=== PATIENT | female | born 2000 | race Two or more races ===

== ENCOUNTER 2024-09-28 04:23 | Emergency (ER) | payer OTHER, SELFPAY ==
[2024-09-28 04:23] VITALS: BMI 42.2
[2024-09-28 04:37] VITALS: BP 132/82; PULSE 90; RESP 16; TEMP 37.1; O2SAT 98
--- NOTE | 2024-09-28 04:50 | XR_ITS ---
Examination: Ribs, left, with PA chest, 5 views Technique: Chest PA, RIBS AP, RPO, LPO, AP coned lower ribs 5 views Exam date and time: September 28, 2024 0456 hours INDICATION: Left upper abdominal pain beginning 2 days ago. Left rib pain FINDINGS: Normal heart size No pneumothorax No acute rib fractures IMPRESSION: No pneumothorax pulmonary contusion or hemothorax No acute rib fractures
--- NOTE | 2024-09-28 04:51 | EDRME_ITS ---
Rapid Medical Screening Exam E Arrival date/time: 09/28/24 04:23 24F with no significant PMH presents to ED with several months of intermittent LUQ pain. Patient denies N/V. Patient tested neg for H. pylori. Patient would like CT if other diagnostics are inconclusive and pain is not improved after GI cocktail, since her PCP was going to order it anyway. Patient is leaving for [place] tomorrow. Chief Complaint: Abdominal Pain Vital signs: Vital Signs Temperature 98.7 F 09/28/24 04:37 Pulse Rate 90 09/28/24 04:37 Respiratory Rate 16 09/28/24 04:37 Blood Pressure 132/82 H 09/28/24 04:37 Pulse Oximetry (%) 98 09/28/24 04:37 Oxygen Delivery Method Room Air 09/28/24 04:37
[2024-09-28] MEDS: FAMOTIDINE 20 MG TABLET 40 MG PO (05:05)
[2024-09-28] MEDS: MG HYD/AL HYD/SIME (Maalox Reg) SUSP 30 ML UDC PO (05:05)
[2024-09-28 05:15] LABS: Collection Type, Urine Clean Catch
[2024-09-28 05:21] LABS: Bilirubin,Urine Negative (Negative); Blood,Urine Negative (Negative); Clarity,Urine Clear (Clear/Hazy); Color,Urine Lt-Yellow (Lt Yel-Yel); Culture Indicated,Urine Not Indicated; Glucose, Urine Negative (Negative); Ketones,Urine Negative (Negative); Leukocyte Esterase,Urine Positive (Negative); Nitrite,Urine Negative (Negative); PH,Urine 6.5 (5.0-7.0); Protein,Urine Negative (Neg - Trace); RBC,Urine 7 /hpf (0-3); Specific Gravity,Urine 1.021 (1.001-1.035); Squamous Epithelial Cell,Urine 3 /hpf (0-5); Urobilinogen,Urine Negative mg/dL (0.0-1.0); WBC,Urine 4 /hpf (0-5)
[2024-09-28 05:23] LABS: HCG Qualitative,Urine Negative
[2024-09-28 05:44] LABS: Basophils % (Auto) 0 % (0-2.5); Eosinophils # (Auto) 0.1 Thou/mm3 (0.0-0.5); Eosinophils % (Auto) 1 % (0-10); Hematocrit 34.2 % (36.0-46.0); Hemoglobin 12.4 g/dL (12.0-16.0); Immature Granulocytes % (Auto) 0 % (0-0); Immature Granulocytes Auto 0.01 Thou/mm3 (0.00-0.00); Lymphocytes # (Auto) 2.2 Thou/mm3 (1.0-4.8); Lymphocytes % (Auto) 40 % (10-50); Mean Corpuscular HGB Conc 36.3 g/dl (31.0-37.0); Mean Corpuscular Hemoglobin 32.4 pg (25.0-35.0); Mean Corpuscular Volume 89 fL (80-100); Monocytes # (Auto) 0.4 Thou/mm3 (0.0-0.8); Monocytes % (Auto) 7 % (0-12); Neutrophils # (Auto) 2.8 Thou/mm3 (1.8-7.7); Neutrophils % (Auto) 52 % (37-80); Nucleated Red Blood Cell % 0 /100 WBC (0); Platelet Count 271 Thou/mm3 (140-440); RDW Standard Deviation 40.2 fL (36.4-46.3); Red Blood Count 3.83 Miln/mm3 (4.00-5.20); White Blood Count 5.5 Thou/mm3 (3.6-11.0)
[2024-09-28 06:15] LABS: Alanine Aminotransferase 14 U/L (10-49); Albumin, Serum 4.1 gm/dL (3.5-5.0); Albumin/Globulin Ratio 1.8 (1.2-2.2); Alkaline Phosphatase 34 U/L (46-116); Anion Gap 7 (7-16); Aspartate Amino Transferase 15 U/L (0-34); BUN/Creatinine Ratio 9 Ratio (12-20); Bilirubin,Total 0.6 mg/dL (0.3-1.2); Blood Urea Nitrogen 7 mg/dL (9-23); Calcium 8.8 mg/dL (8.3-10.6); Calcium (Corrected) 8.8 mg/dL (8.5-10.1); Carbon Dioxide 25.7 mMol/L (20.0-31.0); Chloride 108 mMol/L (98-107); Creatinine (Component) 0.8 mg/dL (0.6-1.3); Estimated Creatinine Clearance 131.4 mL/min (>60); Globulin 2.3 gm/dL (2.3-3.5); Glucose 92 mg/dL (74-106); Lipase 35 U/L (12-53); Osmolality,Calculated 279 (275-295); Potassium 3.7 mMol/L (3.4-5.1); Sodium 141 mMol/L (136-145); Total Protein 6.4 gm/dL (5.7-8.2); eGFR > 60 See Note
[2024-09-28 06:24] LABS: Amphetamine/Methamp Scrn,U Negative (Negative); Barbiturate Screen,Urine Negative (Negative); Benzodiazepines Screen,Urine Negative (Negative); Benzoylecgonine Screen, Ur Negative (Negative); Fentanyl Screen,Urine Negative (Negative); Opiate Screen,Urine Negative (Negative); THC Screen,Urine Negative (Negative)
--- NOTE | 2024-09-28 07:05 | XR_ITS ---
Examination: CT abdomen and pelvis without contrast. Coronal 3-D reconstructions. Sagittal 2-D reconstructions. Date and time of exam:September 28, 2024 0819 hours INDICATION: Left-sided flank pain frequent urination beginning 2 days ago CTDI: vol (mGy): 16.2 DLP: (mGycm): 977 Technique: Axial images of the abdomen have been obtained, 3 mm slice thickness Intravenous contrast material has not been administered. Low dose protocols were performed. One or more of the following dose reduction techniques were used; automated exposure control, adjustment of the mA and/or KV according to patient size, use of iterative reconstruction technique. Findings: No focal liver or splenic lesions No gallstones No pancreatic or adrenal mass No renal or ureteral calculi, no hydronephrosis Normal appendix No bowel obstruction No diverticulitis Partially retroverted uterus No pelvic mass Colonic diverticulosis Contracted urinary bladder, no bladder mass or bladder calculi Moderate disc narrowing posteriorly L5-S1 IMPRESSION: No renal or ureteral calculi, no hydronephrosis Normal appendix Colonic diverticulosis, no diverticulitis No bladder mass or bladder calculi
--- NOTE | 2024-09-28 07:52 | PC.NURSE ---
called CT, per CT pt. will be next to get her CT done.
--- NOTE | 2024-09-28 09:32 | PC.NURSE ---
NO ANSWER WHEN CALLED TO BE DISCHARGED
--- NOTE | 2024-09-28 09:49 | EDNOTE_ITS ---
ED Abdominal Pain RME/HPI General Chief Complaint: Abdominal Pain Stated complaint: LUQ PAIN Time seen by provider: 09/28/24 07:06 Arrival date/time: 09/28/24 04:23 24F with no significant PMH presents to ED with several months of intermittent LUQ pain. Patient denies N/V. Patient tested neg for H. pylori. Patient would like CT if other diagnostics are inconclusive and pain is not improved after GI cocktail, since her PCP was going to order it anyway. Patient is leaving for [place] tomorrow. Limitations: no limitations RME / HPI RME / HPI narrative: 09/28/24 04:23 24F with no significant PMH presents to ED with several months of intermittent LUQ pain. Patient denies N/V. Patient tested neg for H. pylori. Patient would like CT if other diagnostics are inconclusive and pain is not improved after GI cocktail, since her PCP was going to order it anyway. Patient is leaving for [place] tomorrow. Related Data Previous Rx's ?Medication ?Instructions ?Recorded clotrimazole 1 % vaginal cream See Rx Instructions .[place] 11/09/19 (Gyne-Lotrimin 7) .COMPLEX #45 grams fluconazole 150 mg tablet 150 mg PO .once #1 tab 11/08 (Diflucan) nystatin 100,000 unit/gram topical 1 applicatio topica l TID #30 grams 11/09/19 cream sodium chloride 0.65 % nasal spray 2 spray intranasal QID PRN nasal 05/24/20 aerosol (Saline Nasal) congestion #60 mL famotidine 20 mg tablet (Pepcid) 20 mg PO BID 30 days #60 tabs 09/28/24 omeprazole 20 mg capsule,delayed 20 mg PO QDAY 14 days #14 caps 09/28/24 release Allergies Allergy/AdvReac Type Severity Reaction Status Date / Time No Known Allergies Allergy Verified 11/09/19 01:03 Review of Systems Review of Systems Systems Reviewed: All systems reviewed, normal except as documented Constitutional Constitutional: Reports system reviewed and no additional complaints, except as documented, Denies fever(s) and Denies headache(s) Eyes Eyes: Reports system reviewed and no additional complaints, except as documented and Denies blurry vision ENT Ears, Nose, Mouth, and Throat: Reports system reviewed and no additional complaints, except as documented, Denies headache(s), Denies nasal congestion and Denies nasal discharge Cardiovascular Cardiovascular: Reports system reviewed and no additional complaints, except as documented, Denies chest pain and Denies dyspnea Respiratory Respiratory: Reports system reviewed and no additional complaints, except as documented, Denies chest congestion, Denies cough and Denies dyspnea Gastrointestinal Gastrointestinal: Reports system reviewed and no additional complaints, except as documented and Reports abdominal pain Integumentary/Breasts Skin/Breast: Reports system reviewed and no additional complaints, except as documented and Denies rash Neurologic Neurologic: Reports system reviewed and no additional complaints, except as documented, Reports as per HPI and Denies headache(s) Past Medical History Past Medical History CARDIAC: Negative Congestive Heart Failure RESPIRATORY: Negative Chronic Obstructive Pulmonary Disease (COPD) GENITOURINARY: Negative Renal Disease ENDOCRINE: Negative Diabetes Mellitus Type 1 or Diabetes Mellitus Type 2 Social History SMOKING STATUS: Never smoker ED Exam General Limitations: Present no limitations General appearance: Present alert and in no apparent distress Head Head exam: Present atraumatic Eye Eye exam: Present normal appearance, PERRL and EOMI ENT ENT exam: Present normal exam, normal oropharynx and mucous membranes moist Neck Neck exam: Present normal inspection, full ROM and trachea midline Chest Chest inspection: Present normal inspection and symmetric chest wall rise Respiratory Respiratory exam: Present normal lung sounds bilaterally Cardiovascular Cardiovascular exam: Present regular rate, normal rhythm and normal heart sounds Abdominal Exam Abdominal exam: Present soft and normal bowel sounds; Absent distention, tenderness, guarding, rebound, rigidity, Jose's sign or tenderness at McBurney's Point Abdominal tenderness: Absent RUQ or RLQ Extremities Exam Extremities exam: Present normal inspection and full ROM Back Exam Back exam: Present normal inspection and full ROM Neurological Exam Neurological exam: Present alert, oriented X3 and CN II-XII intact Psychiatric Psychiatric exam: Present normal affect and normal mood Skin Skin exam: Present warm, dry, intact and normal color Course Quality Measures none Orders Category Date Time Status CT abdomen pelvis wo con Stat Exams 09/28/24 07:05 Completed XR ribs LT min 3V w CXR1V Stat Exams 09/28/24 04:50 Completed CBC Stat Lab 09/28/24 05:25 Completed CMP [Comprehensive Metabolic Panel] Stat Lab 09/28/24 05:25 Completed Drug Screen,Urine Stat Lab 09/28/24 05:00 Completed HCG Qualitative,Urine Stat Lab 09/28/24 05:00 Completed Lipase Stat Lab 09/28/24 05:25 Completed Urinalysis, C/S if Indicated Stat Lab 09/28/24 05:00 Completed Famotidine [Pepcid] Med 09/28/24 04:50 Discontinued 40 mg PO X1 ONE mg Hyd/Al Hyd/Felicia Susp [Maalox Susp] Med 09/28/24 04:50 Discontinued 30 ml PO X1 ONE Vital Signs Vital signs: Vital Signs Temperature 98.7 F 09/28/24 04:37 Pulse Rate 90 09/28/24 04:37 Respiratory Rate 16 09/28/24 04:37 Blood Pressure 132/82 H 09/28/24 04:37 Pulse Oximetry (%) 98 09/28/24 04:37 Oxygen Delivery Method Room Air 09/28/24 04:37 O2 saturation 98% on room air with normal limits Abdominal Pain MDM MDM Narrative MDM Narrative:: 24F with no significant PMH presents to ED with several months of intermittent LUQ pain. Patient denies N/V. Patient tested neg for H. pylori. Patient would like CT if other diagnostics are inconclusive and pain is not improved after GI cocktail, since her PCP was going to order it anyway. Patient is leaving for [place] tomorrow. On exam patient well-appearing patient does not appear ill or toxic in no acute distress Clinically patient has normal exam Lab work and imaging obtained no acute emergent findings noted Patient discharged home in no distress to follow-up with primary care doctor in the next 24 to 48 hours and for any worsening symptoms to return to the ER immediately Patient data External records reviewed:: [facility] previous records Clinical information provided by:: patient Social determinants that could affect healthcare access:: none Patient has the following chronic illnesses:: None How is presenting disease/condition affected by chronic disease/condition?: no chronic disease Evaluation data The following diagnostics were reviewed and interpreted by me:: lab results and radiology exam(s) Lab and/or radiology exams considered but not ordered:: Labs radiology obtained Interpretation Summary: Reviewed by me Medications / Prescriptions Medications or Prescriptions considered but not ordered:: Given Medication administrations:: Medication Administration History Discontinued Medications Al Hydrox/Mg Hydrox/Simethicone (Mg Hyd/Al Hyd/Felicia (Maalox Reg) Susp 30 Ml Udc) 30 ml PO X1 ONE Stop: 09/28/24 04:51 Last Admin: 09/28/24 05:05 Dose: 30 ml Documented By: DONAL Famotidine (Famotidine 20 Mg Tablet) 40 mg PO X1 ONE Stop: 09/28/24 04:51 Last Admin: 09/28/24 05:05 Dose: 40 mg Documented By: DONAL Given Consultations Consultation(s) initiated? (list below): No Diagnosis Differential diagnosis abdominal pain: abdominal pain, acute appendicitis, pancreatitis and small bowel obstruction Most likely diagnosis given after review of the tests above:: Abdominal pain Admission Indicated Admission indicated?: not indicated Admission Request Was there a request for admission?: No Disposition Plan Disposition Plan: Discharge Discharge Attestation Discharge Attestation: The patient and all family members were given an opportunity to ask questions and understood the discharge instructions. Discharge instructions specifically effects, indications for sooner follow up or return to the emergency department, and the expected course of current diagnosis. Patient condition: Stable Discharge Plan Plan Patient Disposition: HOME (Self Care) Discharge Disposition comment: Stable Prescriptions/Referrals Prescriptions/Med Rec: New famotidine [Pepcid] 20 mg tablet 20 mg PO BID 30 Days Qty: 60 0RF omeprazole 20 mg capsule,delayed release(DR/EC) 20 mg PO QDAY 14 Days Qty: 14 0RF No Action sodium chloride [Saline Nasal] 0.65 % aerosol,spray 2 spray intranasal QID PRN (Reason: nasal congestion) Qty: 60 0RF fluconazole [Diflucan] 150 mg tablet 150 mg PO .once Qty: 1 0RF clotrimazole [Gyne-Lotrimin 7] 1 % cream See Rx Instructions .ROUTE .COMPLEX Qty: 45 0RF Rx Instructions: Administer one applicator full PV QD x 7 days nystatin 100,000 unit/gram cream 1 applicatio TOPICAL TID Qty: 30 2RF Referrals: Yola Mukherjee NP [Primary Care Provider] - 09/29/24 Problem List Clinical Impression: Abdominal pain Patient/Caregiver Discharge Instructions Education Materials: Medicine for Pain Additional Instructions: Please follow up with your primary care doctor in the next 24-48hrs for any worsening symptoms return here immediately Print Language: [place] Stand Alone Forms: Nicol Award Info., Patient Portal Info Letter PA/CONTROL CENTER OPERATOR Supervising Physician PA/CHIP Supervising Physician: dr cali
== END 2024-09-28 09:53 | disposition home or self-care (01) ==
PROVIDERS: Physician Assistant; Emergency Provider Emergency Medicine; PCP Nurse Practitioner Family
DX: R10.12 Left upper quadrant pain (principal); K57.30 Diverticulosis of large intestine without perforation or abscess without bleeding
CPT/HCPCS: 36415; 71101; 74176; 80053; 80307; 81001; 81025; 83690; 85025; 99284; A9270

== ENCOUNTER → 2024-11-08 | Outpatient (CLI) | payer OTHER, SELFPAY ==
--- NOTE | 2024-11-08 | XR_ITS ---
Examination: Pelvic ultrasound, transabdominal, complete Technique: Transabdominal ultrasound of the pelvis performed using grayscale imaging Date and time of exam: November 08, 2024, 0726 hours INDICATIONS: Right pelvic pain beginning 4 days ago FINDINGS: Uterus 7.0 cm endometrial stripe 0.4 cm No uterine mass or intrauterine gestation Right ovary 3.6 cm arterial flow Left ovary 4.1 cm arterial flow, 19 x 13 x 17 mm simple cyst IMPRESSION: Left ovarian simple cyst 19 x 13 x 17 mm
== END | disposition home or self-care (01) ==
LOC: CDIM 07:05
PROVIDERS: PCP Nurse Practitioner Family; Referring Provider Nurse Practitioner Family; Visit Provider Nurse Practitioner Family
DX: N83.292 Other ovarian cyst, left side (principal)
CPT/HCPCS: 76856